=== PATIENT | female | born 1990 | race Caucasian/White ===

== ENCOUNTER 2019-06-17 14:56 | Inpatient (IN) | payer BC ==
[~2019-06-17] VITALS: Ht 167.6 cm; Wt 56.7 kg
[2019-06-17 15:38] VITALS: Ht 167.6 cm; Wt 56.7 kg
[2019-06-17 16:43] LABS: BASOPHIL % 1.2 % (0-2); PLATELET COUNT 319 x10^3mcL (130-400); RED CELL DISTRIBUTION WIDTH 12.6 % (11.5-14.5)
--- NOTE | 2019-06-17 18:38 | NUR ---
PT PRESENTS S/P HAVING ULTRASOUND COMPLETED, LABS HAVE BEEN DRAWN APPROX 2 HR AGO; URINE SAMPLE OBTAINED, POC COMPLETED, NOTED TO HAVE FAINT POSITIVE SIGN; PROVIDER HAS SPOKEN TO PT,WAITING ON FURTHER DISPO
[2019-06-17 18:41] LABS: UA SPECIFIC GRAVITY <=1.005 (1.005-1.035); microscopic required? YES; urine erythrocyte 3+ (NEGATIVE)
--- NOTE | 2019-06-17 19:18 | NUR ---
RECEIVED REPORT FROM DORYS ARIAS
[2019-06-17 21:04] LABS: MAGNESIUM 2.1 mg/dL (1.8-2.4); PHOSPHOROUS 4.1 mg/dL (2.5-4.9)
[2019-06-17 21:13] LABS: FREE T4 0.89 ng/dL (0.76-1.46); FREE THYROXINE INDEX 2.9 ug/dL (1.4-4.5); T4(THYROXINE) 9.6 ug/dL (4.7-13.3)
--- NOTE | 2019-06-17 21:30 | NUR ---
PT WAS RECEIVED BY PRIMARY NURSE WILFREDO FROM ED VIA WHEELCHAIR AT 2125H. AAOX4. C/O MILD HEADACHE. DENIES DIZZINESS. ABLE TO FOLLOW COMMANDS. NO SOB NOTED, LUNG SOUNDS CTA, O2 SAT=97%, RA. DENIES CHEST PAIN/PRESSURE, NJ=74. STATED THAT SHE STARTED TO HAVE SPOTTING AT 8AM AND STARTED TO HAVE VAGINAL BLEED SINCE 9 AM, HAD CHANGED PAD X1 TODAY BUT NO CLOTS NOTED. C/O 4/10 LOWER ABDOMINAL PAIN RADIATING TO THE LOWER BACK DESCRBED CRAMPING. IV SITE ON THE RAC IS PATENT AND INTACT. SIDE RAILS UPX2. CALL LIGHT ON REACH. ENDORSED TO PRIMARY NURSE WILFREDO FOR CONTINUITY OF CARE
--- NOTE | 2019-06-17 21:31 | NUR ---
RECEIVED PT FROM HUGO SILVERMAN. PT A/OX4. DENIES SOB ON RA. IV PATENT AND INFUSING NS BOLUS WITH NO S/S OF INFILTRATION. PT C/O 11/29 ABD CRAMPING. ORIENTED PT TO ROOM AND SURROUNDINGS. CALL LIGHT WITHIN REACH, BED IN LOW POSITION. WILL CONTINUE TO MONITOR.
[2019-06-17 21:38] VITALS: BP 128/85
[2019-06-17 21:51] LABS: T3 TOTAL 1.22 ng/mL
--- NOTE | 2019-06-17 22:31 | NUR ---
DR GLOVER AT BEDSIDE DISCUSSING PLAN OF CARE WITH PATIENT. ALL QUESTIONS AND CONCERNS ADDRESSED AT THIS TIME. WILL CONTINUE TO MONITOR.
--- NOTE | 2019-06-18 01:12 | NUR ---
PT RESTING IN NO ACUTE DISTRESS. RR EVEN AND UNLABORED. CALL LIGHT WITHIN REACH, BED IN LOW POSITION. WILL CONTINUE TO MONITOR.
[2019-06-18 04:50] VITALS: BP 106/72
[2019-06-18 06:43] LABS: CALCIUM 8.2 mg/dL (8.5-10.1); CARBON DIOXIDE 27.4 mmol/L (21-32); CHLORIDE SERUM 106 mmol/L (98-107); CREATININE SERUM 0.7 mg/dL (0.6-1.0); GFR1 > 60 mL/min; GLUCOSE SERUM 77 mg/dL (74-106); MAGNESIUM 1.9 mg/dL (1.8-2.4); PHOSPHOROUS 4.2 mg/dL (2.5-4.9); POTASSIUM SERUM 3.6 mmol/L (3.5-5.1); SODIUM SERUM 140 mmol/L (136-145)
[2019-06-18 06:44] LABS: BASOPHIL % 1.2 % (0-2); PLATELET COUNT 244 x10^3mcL (130-400); RED CELL DISTRIBUTION WIDTH 12.3 % (11.5-14.5)
--- NOTE | 2019-06-18 07:30 | NUR ---
PT ENDORSE TO ME THIS MORNING, LAYING IN BED RESTING AA/O X4 BREATHING EVEN AND UNLABORED ON RA, NO ACUTE RESP DISTRESS OR SOB NOTED. MEDSURG, DENIES ANY CP OR PRESSURE. BOWLE SOUNDS ACTIVE IN ALL FOUR QUADS, PER PT LAST BM 06/17. VOIDS FREELY, PER PT HAS LIGHT MENSTRUAL CRAMPING AND CLOTS THIS AM. MEDICATED PER EMAR FOR DISCOMFORT. AMB. IV TO THE RAC INTACT AND PATENT/ INFUSING AT 100ML/HR, NO REDNESS OR SWELLING NOTED. WILL CONTINUE TO MONITOR.
[2019-06-18 08:49] VITALS: BP 115/73
[2019-06-18 11:26] VITALS: BP 104/74
--- NOTE | 2019-06-18 12:51 | NUR ---
PT TOLERATED 100% OF LUNCH, IS C/0 OF ABD PAIN, MEDICATED PER EMAR WITH NORCO. WILL CONTINUE TO MONITOR.
--- NOTE | 2019-06-18 12:53 | NUR ---
PT C/O OF 5/10 LOWER ABD PAIN, MEDICATED PER EMAR.
--- NOTE | 2019-06-18 16:27 | NUR ---
PER DR. CA ORDERS, INPUT HCG LAB TO BE COMPLETED AT 1700. ALL ORDERS FOLLOWED THROUGH. WILL CONTINUE TO MONITOR.
[2019-06-18 16:31] VITALS: BP 106/72
--- NOTE | 2019-06-18 18:53 | NUR ---
NO ACUTE CHANGES AT THIS TIME, NO ACUTE RESP DISTRESS OR SOB NOTED. AWAITING HCG QUANTITATIVE RESULT. ONCE REC WILL ENDORSE TO NIGHT NURSE TO CALL DR. GLOVER WITH RESULT. IV TO THE RAC INTACT AND PATENT/ HEPLOCKED. CALL LIGHT IN REACH /BED IN LOW POSITION. WILL ENDORSE TO INCOMING RN.
--- NOTE | 2019-06-18 19:05 | NUR ---
RECEIVED PT FROM PREVIOUS SHIFT. PT A/OX4. DENIES SOB ON RA. C/O MILD ABD CRAMPING AND LIGHT VAGINAL BLEEDING. IV PATENT AND FLUSHING WELL, SALINE LOCKED. AT BEDSIDE. CALL LIGHT WITHIN REACH, BED IN LOW POSITION. WILL CONTINUE TO MONITOR.
--- NOTE | 2019-06-18 19:15 | NUR ---
DR GLOVER NOTIFIED OF HCG LEVEL 45.
[2019-06-18 20:48] LABS: CALCIUM 9.1 mg/dL (8.5-10.1); CARBON DIOXIDE 26.4 mmol/L (21-32); CHLORIDE SERUM 105 mmol/L (98-107); CREATININE SERUM 0.7 mg/dL (0.6-1.0); GFR1 > 60 mL/min; GLUCOSE SERUM 86 mg/dL (74-106); POTASSIUM SERUM 4.4 mmol/L (3.5-5.1); SODIUM SERUM 141 mmol/L (136-145)
--- NOTE | 2019-06-18 21:01 | NUR ---
DR GLOVER SPOKE WITH PATIENT VIA TELEPHONE TO INFORM PATIENT OF PLAN FOR SURGURY AT 7021 06/19. PT VERBALIZED UNDERSTANDING OF NEED FOR SURGERY.
[2019-06-18 21:12] VITALS: BP 116/79
--- NOTE | 2019-06-19 00:31 | NUR ---
PT RESTING IN NO ACUTE DISTRESS. RR EVEN/UNLABORED. CALL LIGHT WITHIN REACH, BED IN LOW POSITION. WILL CONTINUE TO MONITOR.
[2019-06-19 04:47] VITALS: BP 92/55
[2019-06-19 06:35] LABS: CALCIUM 8.6 mg/dL (8.5-10.1); CARBON DIOXIDE 27.5 mmol/L (21-32); CHLORIDE SERUM 104 mmol/L (98-107); CREATININE SERUM 0.7 mg/dL (0.6-1.0); GFR1 > 60 mL/min; GLUCOSE SERUM 86 mg/dL (74-106); POTASSIUM SERUM 3.8 mmol/L (3.5-5.1); SODIUM SERUM 139 mmol/L (136-145)
[2019-06-19 06:57] LABS: BASOPHIL % 1.6 % (0-2); PLATELET COUNT 250 x10^3mcL (130-400); RED CELL DISTRIBUTION WIDTH 12.6 % (11.5-14.5)
--- NOTE | 2019-06-19 07:10 | NUR ---
PT ENDORSE TO ME THIS MORNING, PT AA/O X4, BREATHING EVEN AND UNLABORED ON RA, NO ACUTE RESP DISTRESS OR SOB NOTED. MEDSURG/ DENIES ANY PAIN OR DISCOMFORT/ OR ABD DISCOMFORT. HUGO LOPEZ FROM OR ARRIVED TO PICKED UP PT FOR PROCEDURE. BY HER SIDE. WILL CONTINUE TO MONITOR ONCE PT RETURNS TO UNIT.
--- NOTE | 2019-06-19 09:42 | NUR ---
PT BACK FROM OR PROCEDURE. AA/O X4 BREATHING EVENE AND UNLABORED ON RA, NO ACUTE RESP DISTRESS OR SOB NOTED. ABD INCISION NOTED TO LOWER PART OF ABD, SUTURES /DURABOND INPLACE/ ISLAND DRESSING INPLACE. BY HER SIDE. CURRENT VS STABLE. WILL CONTINUE TO MONITOR.
[2019-06-19 09:46] VITALS: BP 104/72
--- NOTE | 2019-06-19 12:15 | NUR ---
PT C/O NV AND ABD PAIN 11/29, MEDICATED FOR BOTH. FAMILY AT BEDSIDE. ENCOURAGED PT TO AMB TO BATHROOM AND CALL FOR ASSIST. PT AGREED. WILL CONTINUE TO MONITOR.
[2019-06-19 12:45] VITALS: BP 102/63
--- NOTE | 2019-06-19 13:30 | NUR ---
PT C/O LOWER ABD PAIN 10/10 MEDICATED PER EMAR. WILL CONTINUE TO MONITOR.
--- NOTE | 2019-06-19 14:49 | NUR ---
PT AMB WITH ASSISTANCE TO BATHROOM, VOIDED X1 (50-100 ML OF CLEAR YELLOW URINE) PT TOLERATED WALK WELL. WILL CONTINUE TO MONITOR.
--- NOTE | 2019-06-19 16:00 | NUR ---
PT C/O ABD PAIN 03/01, MEDICATED PER EMAR.
[2019-06-19 17:23] VITALS: BP 106/66
--- NOTE | 2019-06-19 17:51 | NUR ---
PT C/O 03/31 ABD PAIN, MEDICATED PER EMAR. BY HER SIDE. PER PT STATED SHE AMB TO BATHROOM TO VOID WITH ASSIST. WILL CONTINUE TO MONITOR
--- NOTE | 2019-06-19 17:59 | NUR ---
NO ACUTE CHANGES AT THIS TIME, NO ACUTE RESP DISTRESS OR SOB NOTED. PT LAYING IN BED RESTING, MEDICATED PER EMAR FOR N/V AND PAIN TO ABD. IV TO THE RAC INTACT AND PATENT. BY HER SIDE. WILL ENDORSE CARE TO INCOMING RN.
--- NOTE | 2019-06-19 19:38 | NUR ---
RECEIVED PT FROM PREVIOUS SHIFT. PT A/OX4. DENIES SOB ON RA. 11/29 ABD PAIN, PT RECEIVED MORPHINE AT 1745, AND DOES NOT WISH TO BE FURTHER MEDICATED AT THIS TIME. AT BEDSIDE. ABD INCISION WITH DRESSING CDI. IV PATENT AND FLUSHING WELL. CALL LIGHT WITHIN REACH, BED IN LOW POSITION. WILL CONTINUE TO MONITOR.
[2019-06-19 20:12] VITALS: BP 91/54
--- NOTE | 2019-06-20 03:01 | NUR ---
PT RESTING IN NO ACUTE DISTRESS. RR EVEN AND UNLABORED. CALL LIGHT WITHIN REACH, BED IN LOW POSITION. WILL CONTINUE TO MONITOR.
[2019-06-20 04:38] VITALS: BP 101/56
--- NOTE | 2019-06-20 05:02 | NUR ---
PT UP TO RESTROOM WITH 'S ASSISTANCE. STATES SHE FEELS LIKE SHE IS GOING TO "PASS OUT". C/O DIZZINESS, SWEATING, AND RINGING IN L EAR. PT PALE, WEAK AND SOB. DR LEES NOTIFIED AND CAME TO BEDSIDE. BLOOD SUGAR CHECKED, 111. PT ASSISTED BACK TO BED. VSS. ICE CHIPS AND ICE PACKS SUPPLIED. LAB CALLED FOR CBC TO CHECK H/H. PT DENIES VAGINAL BLEEDING. NO NEW BLOOD TO DRESSING ON ABD INCISION. CALL LIGHT WITHIN REACH, BED IN LOW POSITION. AND PATIENT TOLD TO USE CALL LIGHT IF SYMPTOMS WORSEN OR CHANGE, VERBALIZED UNDERSTANDING. WILL CONTINUE TO MONITOR.
[2019-06-20 07:12] LABS: BASOPHIL % 0.6 % (0-2); PLATELET COUNT 211 x10^3mcL (130-400); RED CELL DISTRIBUTION WIDTH 11.9 % (11.5-14.5)
[2019-06-20 07:34] LABS: CALCIUM 8.1 mg/dL (8.5-10.1); CARBON DIOXIDE 24.8 mmol/L (21-32); CHLORIDE SERUM 104 mmol/L (98-107); CREATININE SERUM 0.9 mg/dL (0.6-1.0); GFR1 > 60 mL/min; GLUCOSE SERUM 95 mg/dL (74-106); POTASSIUM SERUM 3.3 mmol/L (3.5-5.1); SODIUM SERUM 137 mmol/L (136-145)
[2019-06-20 08:37] VITALS: BP 98/58
--- NOTE | 2019-06-20 09:54 | NUR ---
AT 0710 - RECEIVED PATIENT FROM NIGHT NURSE. SLEEPING. RESPIRATIONS REGULAR. IV SALINE LOCKED. AT BEDSIDE. AT 0750 - AWAKE, ALERT AND ORIENTED. REPORTS THAT NORCO WAS EFFECTIVE IN PAIN RELEIF. SEEN BY DR GLOVER. PATIENT MAY DISCHARGE HOME TODAY. TO FOLLOW UP WITH HIM IN CLINIC ON 06/23/18. AT 0845 - SEEN BY JUSTEN BOBO. AT 0935 - MEDICATED WITH NORCO PER EMAR FOR CRAMPY ABDOMINAL PAIN. PATIENT ENCOURAGED TO AMBULATE.
[2019-06-20] MEDS ORDERED: APAP/HYDROCODON1 T13 PO (11:26)
[2019-06-20 12:29] VITALS: BP 97/60
[2019-06-20 12:57] VITALS: BP 97/60
--- NOTE | 2019-06-20 15:13 | NUR ---
AT 1135 - RECEIVED DISCHARGE ORDER. PATIENT TO GO HOME WITH WALKER PER PHYSICAL THERAPY RECOMMENDATION. SS ARRANGING WALKER. AT 1420 - DRESSING TO SURGICAL [id number]. PHOTO DOCUMENTED AND PATIENT INSTRUCTED IN CARE OF WOUND AND S&S OF INFECTION. WALKER DELIVERED TO BEDSIDE. AT 1500 - PRINTED DISCHARGE INSTRUCTIONS GIVEN AND EXPLAINED TO PATIENT. PRESCRIPTION PROVIDED. IV CATHETER REMOVED INTACT. PREPARED FOR DISCHARGE.
--- NOTE | 2019-06-20 15:28 | NUR ---
DISCHARGED HOME WITH . TAKEN TO DISCHARGE OFFICE IN WHEELCHAIR.
== END 2019-06-20 15:15 | disposition home or self-care (01) | DRG 819 ==
LOC: ED 14:56 → MU 19:45
PROVIDERS: Emergency Medicine; Obstetrics & Gynecology; ADMIT General Practice
PROC: 0UB20ZZ Excision of Bilateral Ovaries, Open Approach (ICD-10-PCS; principal; 2019-06-19 07:30)
DX: O20.0 Threatened abortion (principal); E78.5 Hyperlipidemia, unspecified
CPT/HCPCS: 82962; 84439; G0378; J0690; J1170; J2270; J2405; J3010; J3490; J7030